=== PATIENT | female | born 1980 | race Asian ===

== ENCOUNTER 2019-01-29 20:40 | Emergency (ER) | payer BC, OTHER ==
[2019-01-29] MEDS ORDERED: TETRACAINE HCL 0.5% OPH SOLN 4 ML OS ONE (21:02)
--- NOTE | 2019-01-29 21:04 | ER Document Report ---
ED Medical Screen (RME) - General Chief Complaint: Eye Pain Stated Complaint: EYE PAIN Time Seen by Provider: 01/29/19 21:00 Mode of Arrival: Ambulatory Information source: Patient Notes: 39-year-old female presented to ED for complaint of pain to the left eye. 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 She states is been very painful for the last 45 minutes. She is alert oriented respirations regular nonlabored speaking in full sentences. She does not smoke drink or use any kind of drugs. I have greeted and performed a rapid initial assessment of this patient. A comprehensive ED assessment and evaluation of the patient, analysis of test results and completion of medical decision making process will be conducted by an additional ED providers. TRAVEL OUTSIDE OF THE [place] IN LAST 30 DAYS: No - Related Data Allergies/Adverse Reactions: No Known Allergies Allergy (Unverified 11/13/15 10:39) Physical Exam - Vital signs Vitals: Temp Pulse Resp BP Pulse Ox 98.3 F 84 18 111/67 98 01/29/19 20:45 01/29/19 20:45 01/29/19 20:45 01/29/19 20:45 01/29/19 20:45 Course - Vital Signs Vital signs: Temp Pulse Resp BP Pulse Ox 98.3 F 84 18 111/67 98 01/29/19 20:45 01/29/19 20:45 01/29/19 20:45 01/29/19 20:45 01/29/19 20:45
--- NOTE | 2019-01-29 22:09 | ER Document Report ---
HPI - HPI Patient complains to provider of: FB in eye Time Seen by Provider: 01/29/19 21:00 Onset: This evening Onset/Duration: Sudden Quality of pain: Achy Pain Level: 4 Context: Patient states that she got into the shower and feels as though she may have washed something out of her hair into her eyes. 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 Patient complains of a foreign body sensation to the left eye. Patient denies wearing glasses or contact lenses. Patient does report tearing to the eye. Associated Symptoms: Other - Foreign body sensation to left eye Exacerbated by: Denies Relieved by: Denies Similar symptoms previously: No Recently seen / treated by doctor: No - ROS ROS below otherwise negative: Yes Systems Reviewed and Negative: Yes All other systems reviewed and negative - EENT EENT: REPORTS: Eye problems - left eye - GASTROINTESTINAL Gastrointestinal: DENIES: Nausea, Patient vomiting - REPRODUCTIVE LMP: 01/13/19 Reproductive: DENIES: : - DERM Skin Color: Normal Skin Problems: None Past Medical History - General Information source: Patient - Social History Smoking Status: Never Smoker Chew tobacco use (# tins/day): No Frequency of alcohol use: None Drug Abuse: None Occupation: Nail salon Family History: Reviewed & Not Pertinent Patient has suicidal ideation: No Patient has homicidal ideation: No - Medical History Medical History: Negative Surgical Hx: Negative Vertical Provider Document - CONSTITUTIONAL Agree With Documented VS: Yes Exam Limitations: No Limitations General Appearance: WD/WN, No Apparent Distress - INFECTION CONTROL TRAVEL OUTSIDE OF THE [place] IN LAST 30 DAYS: No - HEENT HEENT: Atraumatic, Normocephalic, PERRLA Notes: EOMI, no fluorescein uptake, no corneal abrasion ulcer or dendrite. Patient with very thin fiber-like foreign body removed from left eye. - NECK Neck: Normal Inspection - RESPIRATORY Respiratory: Breath Sounds Normal, No Respiratory Distress - CARDIOVASCULAR Cardiovascular: Regular Rate, Regular Rhythm - MUSCULOSKELETAL/EXTREMETIES Musculoskeletal/Extremeties: MAEW - NEURO Level of Consciousness: Awake, Alert, Appropriate Motor/Sensory: No Motor Deficit - DERM Integumentary: Warm, Dry, No Rash Course - Re-evaluation Re-evalutation: 01/29/19 23:23 Patient without any obvious foreign body to left eye. Patient is feeling better after eye irrigation. Will cover with antibiotics and encourage outpatient follow-up with ophthalmology for any persistent problems. - Vital Signs Vital signs: Temp Pulse Resp BP Pulse Ox 98.3 F 84 18 111/67 98 01/29/19 20:45 01/29/19 20:45 01/29/19 20:45 01/29/19 20:45 01/29/19 20:45 Discharge - Discharge Clinical Impression: FB eye Qualifiers: Encounter type: initial encounter Laterality: left Qualified Code(s): T15.92XA - Foreign body on external eye, part unspecified, left eye, initial encounter Condition: Stable Disposition: HOME, SELF-CARE Instructions: Conjunctival Foreign Body ([facility]), Eyedrop Use ([facility]) Additional Instructions: Return immediately for any new or worsening symptoms Followup with your primary care provider, call tomorrow to make a followup appointment Instill Polytrim 1 drop to left eye every 6 hours for the next 5 days. Follow-up with ophthalmology for any persistent problems, call Thursday for an appointment Referrals: [facility] [Provider Group] - Follow up as needed
[2019-01-29] MEDS ORDERED: RINGERS SOLUTION,LACTATED 1,000 ML IV ONE (22:39)
[2019-01-29] MEDS ORDERED: POLYMYXIN B SULFATE/TMP OPH SOLN (10 ML/ER DISP) OS PRN (23:28)
[2019-01-30 00:15] VITALS: BP 110/65
== END 2019-01-29 23:45 | disposition home or self-care (01) ==
LOC: ER 20:40
DX: T15.92XA Foreign body on external eye, part unspecified, left eye, initial encounter (principal); X58.XXXA Exposure to other specified factors, initial encounter
CPT/HCPCS: J3490 ×2; J7120